=== PATIENT | male | born 1990 | race Caucasian/White ===

== ENCOUNTER 2020-10-24 12:57 | Emergency (ER) | payer BC, SELFPAY ==
--- NOTE | 2020-10-24 13:00 | ED.SKABFB ---
HPI - Skin/Abscess/Foreign Bdy General Chief complaint: Skin/Abscess/Foreign Body Stated complaint: rash Time Seen by Provider: 10/24/20 13:01 Source: patient and RN notes reviewed History of Present Illness HPI narrative: Patient is a 29-year-old male who presents the urgent care with complaints of an itchy rash to the bilateral arms. Patient states he was cleaning out the garage yesterday to prepare for moving and believes he may have gotten into poison axel or poison oak. Patient states that he has been taking Benadryl since last night without much improvement. Denies of any other acute complaints. No acute distress noted. Patient aware of the plan of care. Some parts of this dictation were generated by voice recognition software and may contain typographical and/or grammatical inaccuracies. Related Data Allergies Allergy/AdvReac Type Severity Reaction Status Date / Time No Known Allergies Allergy Unverified 03/15/18 03:33 Review of Systems Review of Systems: Narrative: CONSTITUTIONAL: Denies fever, chills, or sweats. EYES: Denies visual changes, redness, or discharge. ENT: Denies rhinorrhea, congestion, sore throat, or otalgia. CARDIOVASCULAR: Denies chest pain, palpitations, or edema. RESPIRATORY: Denies cough or dyspnea. GASTROINTESTINAL: Denies abdominal pain, nausea, vomiting, or diarrhea. GENITOURINARY: Denies dysuria or hematuria. SKIN: Reports of an itchy rash to bilateral arms MUSCULOSKELETAL: Denies back pain, joint pain, or myalgia. NEUROLOGIC: Denies headache, numbness, or weakness. All other systems reviewed are negative, except as documented in HPI. PMFSH Comments At the time of my signature, I reviewed and agree with the nursing past medical, surgical, social, and family history. There is no relevant family history pertinent to the patient complaint. Exam Narrative: Exam Narrative: GENERAL: This is a well-nourished, well-developed patient, in no apparent distress. HEAD: normocephalic, atraumatic. EYES: PERRL. Sclera clear/white. Vision is grossly intact. EARS: External ears normal NOSE: External nose normal with no obvious nasal discharge, nares without redness, no rhinorrhea. THROAT: Mucous membranes moist NECK: Neck supple CARDIOVASCULAR: Regular rate and rhythm without murmurs, gallops, or rubs. RESPIRATORY: Clear to auscultation. Breath sounds equal bilaterally. No wheezes, rales, or rhonchi. SKIN: Slightly raised pruritic dermatitis noted to bilateral lower and upper arms NEURO: awake, alert, and oriented to person, place and time. There were no obvious focal neurologic abnormalities. EXTREMITIES: No clubbing, cyanosis, or edema. Course Vital Signs Vital signs: Vital Signs Temperature 98.2 F 10/24/20 13:01 Pulse Rate 82 10/24/20 13:01 Respiratory Rate 12 10/24/20 13:01 Blood Pressure 138/94 H 10/24/20 13:01 Pulse Oximetry 99 10/24/20 13:01 Temperature 98.2 F 10/24/20 13:01 Pulse Rate 82 10/24/20 13:01 Respiratory Rate 12 10/24/20 13:01 Blood Pressure 138/94 H 10/24/20 13:01 Pulse Oximetry 99 10/24/20 13:01 Reviewed-patient is informed that they may have pre-hypertension or hypertension based on a blood pressure reading in the department. I recommend the patient call the primary care provider listed on their discharge instructions or a physician of their choice this week to arrange follow-up for further evaluation of possible pre-hypertension or hypertension. MDM - Skin/Abscess/Foreign Bdy MDM Narrative Medical decision making narrative: Advised the patient to complete oral steroid regimen as prescribed. Be sure to eat and drink with the medications. Be aware that steroids do enhance your sensitivity to the sun. Use prescription cream to the affected areas avoiding the groin, underarms and near the eyes. May continue to use your oral daily antihistamine for itch relief. Follow-up with your PCP within 2 to 5 days or for worsening symptoms or failure to improve.
[2020-10-24 13:01] VITALS: BP 138/94; PULSE 82; RESP 12; TEMP 36.8; O2SAT 99
== END 2020-10-24 13:11 | disposition home or self-care (01) ==
PROVIDERS: Emergency Provider Nurse Practitioner Family
DX: L23.7 Allergic contact dermatitis due to plants, except food (principal)
CPT/HCPCS: 99213; G0463